=== PATIENT | male | born 1985 | race Caucasian/White ===

== ENCOUNTER 2016-10-01 20:55 | Emergency (ER) | payer OTHER ==
[~2016-10-01] VITALS: Ht 172.7 cm; Wt 87.0 kg
[2016-10-01 21:01] VITALS: Ht 172.7 cm; Wt 87.0 kg
[2016-10-01] MEDS ORDERED: ACETAMINOPHEN 500 MG TAB PO ONE (22:59)
--- NOTE | 2016-10-01 22:59 | ERD ---
ER Documentation Chief Complaint Date/Time DATE: 10/01/16 TIME: 22:54 Chief Complaint flu like symptoms- body aches, runny nose, fever, cough HPI 31-year-old male presents to emergency department for complaints of body aches runny nose nasal congestion cough for 2 days. Patient has been having dry cough , does not cough any phlegm or blood. Patient does not have any shortness breath or wheezing. Patient did not take any medications to help with symptoms. Patient has been having on and off fever. Patient does not have any sick contacts. ROS All systems reviewed and are negative except as per history of present illness. Medications Home Meds Active Scripts Ibuprofen* (Motrin*) 600 Mg Tab, 600 MG PO Q6H Y for PAIN AND OR ELEVATED TEMP, #30 TAB Prov:DELORIS MARIE NP 10/01/16 Cetirizine Hcl* (Zyrtec*) 10 Mg Capsule, 10 MG PO DAILY, #30 TAB.CHEW Prov:DELORIS MARIE NP 10/01/16 Atfqyyppoor-E-Apcwjeeksa Hb* (Guaifenesin* DM Syrup) 120 Ml Syrup, 10 ML PO Q4H Y for COUGH, #120 ML Prov:DELORIS MARIE NP 10/01/16 Reported Medications [none] Unknown Strength No Conflict Check 10/01/16 Allergies Allergies: Coded Allergies: No Known Allergy (Unverified , 10/01/16) PMhx/Soc Medical and Surgical Hx: pt denies Medical Hx Hx Alcohol Use: Yes Hx Tobacco Use: Yes Smoking Status: Current every day smoker FmHx Family History: No coronary disease, No diabetes, No other Physical Exam Vitals Vital Signs Date Time Temp Pulse Resp B/P Pulse Ox O2 Delivery O2 Flow Rate FiO2 10/01/16 23:46 98.9 99 18 98 10/01/16 22:50 104 10/01/16 21:01 110 20 131/63 100 Physical Exam GENERAL: The patient is well developed and appropriate for usual state of health, in no apparent distress. HEENT: Atraumatic. Ears: Normal tympanic membrane, no erythema or bulging. No ear canal swelling. No ear discharge. Nose: Erythematous nasal turbinates are nasal discharge. Throat: oropharynx erythematous with postnasal drip. No tonsillar swelling or tonsillar exudates. No lymphadenopathy. CHEST: Clear to auscultation bilaterally. There are no rales, wheezes or rhonchi. HEART: Regular rate and rhythm. No murmurs, clicks, rubs or gallops. No S3 or S4. ABDOMEN: Soft, nontender and nondistended. Good bowel sounds. No rebound or guarding. No gross peritonitis. No gross organomegaly or masses. No Arechiga sign or McBurney point tenderness. BACK: No midline or flank tenderness. EXTREMITIES: Equal pulses bilaterally. There is no peripheral clubbing, cyanosis or edema. No focal swelling or erythema. Full range of motion. Grossly neurovascularly intact. NEURO: Alert and oriented. Cranial nerves 2-12 intact. Motor strength in all 4 extremities with 5/5 strength. Sensation grossly intact. Normal speech and gait. SKIN: There is no apparent rash or petechia. The skin is warm and dry. HEMATOLOGIC AND LYMPHATIC: There is no evidence of excessive bruising or lymphedema. No gross cervical, axillary, or inguinal lymphadenopathy. Results 24 hrs Current Medications Medications (Trade) Dose Ordered Sig/Samir Route PRN Reason Start Time Stop Time Status Last Admin Dose Admin Ibuprofen (Motrin) 600 mg ONCE ONCE PO 10/01/16 23:00 10/01/16 23:01 DC 10/01/16 23:01 Acetaminophen (Tylenol Tab) 500 mg ONCE ONCE PO 10/01/16 22:59 10/01/16 23:00 DC 10/01/16 23:03 Patient was given medication for pain here in emergency department, after treatment, patient verbalized feeling much better. Patient's pain is improved. Procedures/MDM Medical Decision Making: Patient symptoms are most likely consistent with upper respiratory tract infection which viral in origin. There is low suspicion for Pneumonia at this time since patients lungs sounds are clear, patient O2 saturation is normal and patient doesnt show any respiratory distress. Radiology exam is not indicated at this time. There is low suspicion for other cardiopulmonary emergencies at this time such as CHF, Pulmonary Embolism, Pneumothorax, or any other cardiopulmonary emergencies at this time. There is low suspicion for sepsis. Patient appears well and is hemodynamically stable. Fever is controlled with medicines. Disposition: Home. Condition: Stable Prescriptions: Guaifenesin DM Zyrtec ibuprofen Tylenol Instructions: Patient is advised to take medications as prescribed. Patient is advised to rest. Patient advised to increase fluid intake, do humidifier at home and if possible, do salt water gargles. Patient is advised that if symptoms are worse, shortness of breath, uncontrolled fever, stridor, vomiting, worst signs and symptoms to return to emergency department immediately. Otherwise, patient is advised to follow up with primary doctor in 5-7 days. Departure Diagnosis: Primary Impression: URI (upper respiratory infection) URI type: unspecified viral URI Qualified Code: J06.9 - Viral upper respiratory tract infection Condition: Stable Patient Instructions: Uri, Viral, No Abx (Adult) Additional Instructions: Patient is advised to take medications as prescribed. Patient is advised to rest. Patient advised to increase fluid intake, do humidifier at home and if possible, do salt water gargles. Patient is advised that if symptoms are worse, shortness of breath, uncontrolled fever, stridor, vomiting, worst signs and symptoms to return to emergency department immediately. Otherwise, patient is advised to follow up with primary doctor in 5-7 days. DELORIS MARIE NP October 01, 2016 22:59
[2016-10-01] MEDS ORDERED: IBUPROFEN 600 MG TAB PO ONE (23:00)
[2016-10-01] MEDS ORDERED: IBUP-1542 PO (23:03)
[2016-10-01] MEDS ORDERED: GUAI120S26 PO (23:03)
[2016-10-01] MEDS ORDERED: CETI10CA PO (23:03)
[2016-10-01 23:46] VITALS: PULSE 99; RESP 18; TEMP 98.9
== END 2016-10-01 23:47 | disposition home or self-care (01) ==
LOC: FTE 20:55
DX: J06.9 Acute upper respiratory infection, unspecified (principal); F17.210 Nicotine dependence, cigarettes, uncomplicated
CPT/HCPCS: Z7610 ×2

== ENCOUNTER 2018-06-03 06:09 | Emergency (ER) | payer OTHER ==
[~2018-06-03] VITALS: Ht 170.2 cm; Wt 82.6 kg
[~2018-06-03 06:09] MED LIST: CETI10CA PO; GUAI120S26 PO; IBUP-1542 PO
[2018-06-03 06:11] VITALS: BP 125/70; PULSE 105; RESP 16; Ht 170.2 cm; Wt 82.6 kg
[2018-06-03] MEDS ORDERED: KETOROLAC 30 MG INJ IM STA (06:38)
[2018-06-03] MEDS ORDERED: IBUP-1542 PO (06:41)
[2018-06-03] MEDS ORDERED: CLIN300C10 PO (06:41)
[2018-06-03] MEDS ORDERED: ACET325T33 PO (06:41)
[2018-06-03] MEDS ORDERED: CLINDAMYCIN 300 MG CAP PO ONE (07:00)
[2018-06-03] MEDS ORDERED: LIDOCAINE/MYLANTA 40 ML BTL PO ONE (07:00)
[2018-06-03] MEDS ORDERED: CLINDAMYCIN 300 MG INJ IM ONE (07:00)
[2018-06-03] MEDS ORDERED: DEXAMETHASONE (1 MG/ML PO SYG) PO ONE (07:00)
--- NOTE | 2018-06-03 10:15 | ERD ---
ER Documentation Chief Complaint Chief Complaint ST x 1 week HPI 32 year old male presents emergency department complaining of a sore throat for the past week. Patient admits to having intermittent fevers and swollen lymph nodes. He denies cough, nausea vomiting diarrhea. He states that he has not taking any medications ROS All systems reviewed and are negative except as per history of present illness. Medications Home Meds Active Scripts Acetaminophen* (Tylenol*) 325 Mg Tablet, 2 TAB PO Q6 PRN for PAIN AND OR ELEVATED TEMP, #30 TAB Prov:DEXTER HUGHES PA-C 06/03/18 Ibuprofen* (Motrin*) 600 Mg Tab, 600 MG PO Q6H PRN for PAIN AND OR ELEVATED TEMP, #30 TAB Prov:DEXTER HUGHES PA-C 06/03/18 Clindamycin Hcl* (Clindamycin Hcl*) 300 Mg Capsule, 300 MG PO TID for 10 Days, CAP Prov:DEXTER HUGHES PA-C 06/03/18 Ibuprofen* (Motrin*) 600 Mg Tab, 600 MG PO Q6H PRN for PAIN AND OR ELEVATED TEMP, #30 TAB Prov:DELORIS MARIE NP 10/01/16 Cetirizine Hcl* (Zyrtec*) 10 Mg Capsule, 10 MG PO DAILY, #30 TAB.CHEW Prov:DELORIS MARIE NP 10/01/16 Qxbbtptxsgs-R-Zhxnjjvgvn Hb* (Guaifenesin* DM Syrup) 120 Ml Syrup, 10 ML PO Q4H PRN for COUGH, #120 ML Prov:DELORIS MARIE NP 10/01/16 Reported Medications [none] Unknown Strength No Conflict Check 10/01/16 Allergies Allergies: Coded Allergies: Penicillins (Verified Allergy, Intermediate, 06/03/18) PMhx/Soc Hx Alcohol Use: Yes (social) Hx Substance Use: No Hx Tobacco Use: Yes Smoking Status: Current every day smoker Physical Exam Vitals Vital Signs Date Temp Pulse Resp B/P (MAP) Pulse Ox O2 O2 Flow FiO2 Time Delivery Rate 06/03/18 97.9 105 16 125/70 100 06:11 (88) Physical Exam Const: No acute distress Head: Atraumatic Eyes: Normal Conjunctiva ENT: Normal External Ears, Nose. Bilateral TMs clear. Oropharynx had evidence of soft exudates with erythema Neck: Lymphadenopathy Resp: Clear to auscultation bilaterally Cardio: Regular rate and rhythm, no murmurs Abd: Soft, non tender, non distended. Normal bowel sounds Skin: No petechiae or rashes Back: No midline or flank tenderness Ext: No cyanosis, or edema Neur: Awake and alert Psych: Normal Mood and Affect Results 24 hrs Current Medications Medications Dose Sig/Samir Start Time Status Last (Trade) Ordered Route PRN Stop Time Admin Dose Reason Admin 10 mg ONCE ONCE 06/03/18 DC 06/03/18 Dexamethasone PO 07:00 06/03/18 07:03 (Decadron 07:01 Intensol Liquid) Ketorolac 30 mg ONCE STAT 06/03/18 DC 06/03/18 Tromethamine IM 06:38 06/03/18 06:53 (Toradol) 06:40 Clindamycin 300 mg ONCE ONCE 06/03/18 DC Phosphate IM 07:00 06/03/18 (Cleocin) 07:00 40 ml ONCE ONCE 06/03/18 DC 06/03/18 Miscellaneous PO 07:00 06/03/18 06:53 Medication 07:01 (Gi Cocktail (2)) Clindamycin 300 mg ONCE ONCE 06/03/18 DC 06/03/18 HCl PO 07:00 06/03/18 06:53 (Cleocin) 07:01 Procedures/MDM 32-year-old male presents to the ER with sore throat, I have a high suspicion for strep pharyngitis without retropharyngeal abscess, peritonsillar abscess, or brittaney's angina due to physical examination. hemodynamically stable for discharge. Prescription for Tylenol, motrin, clinda was given to patient, dis cussed to return to the ED if not improving as expected or follow-up with a primary care physician. Patient understood and agreed with this plan. Departure Diagnosis: Primary Impression: Sore throat Condition: Stable Patient Instructions: When You Have a Sore Throat, Strep Throat Referrals: NO PRIMARY,CARE PHYSICIAN (PCP) Additional Instructions: Return to this facility if you are not improving as expected. Take all medicines as directed. DEXTER HUGHES PA-C Jun 03, 2018 10:15
== END 2018-06-03 07:14 | disposition home or self-care (01) ==
LOC: FTE 06:09
DX: J02.9 Acute pharyngitis, unspecified (principal); F17.210 Nicotine dependence, cigarettes, uncomplicated
CPT/HCPCS: 96372; J1885; Z7502; Z7610